=== PATIENT | female | born 1965 | race Caucasian/White ===

== ENCOUNTER → 2016-06-23 | Outpatient (CLI) | payer BC ==
[~2016-06-23] MED LIST: BENICAR40 MG PO; ESTRACE 1MG1 MG/TAB PO; PROAIR HFA0.09 MG/AC IH
== END ==
LOC: MC.RAD 08:00
DX: N63 Unspecified lump in breast (principal)

== ENCOUNTER → 2017-01-05 | Outpatient (CLI) | payer BC | LOC: MC.RAD 08:17 | DX: N63.10 Unspecified lump in the right breast, unspecified quadrant (principal) ==

== ENCOUNTER → 2018-01-18 | Outpatient (CLI) | payer BC | LOC: MC.RAD 07:00 | DX: Z12.31 Encounter for screening mammogram for malignant neoplasm of breast (principal) ==